=== PATIENT | male | born 1990 | race African-American/Black ===

== ENCOUNTER 2017-10-03 11:21 | Emergency (ER) | payer SELFPAY ==
[2017-10-03 11:43] VITALS: BP 120/66
[2017-10-03] MEDS ORDERED: IBUPROFEN 800 MG TABLET PO ONE (12:26)
[2017-10-03] MEDS ORDERED: PENICILLIN V POTASSIUM 500 MG TABLET PO ONE (12:26)
--- NOTE | 2017-10-03 12:30 | ER Document Report ---
HPI - HPI Patient complains to provider of: Sore throat Onset/Duration: Persistent Quality of pain: Achy Pain Level: 4 Context: Patient presents complaining of sore throat for the past 2 days. Patient does report fever at home. Patient denies any cough or cold symptoms otherwise. Associated Symptoms: Fever, Sore throat. denies: Nonproductive cough, Productive cough, Earache, Vomiting Exacerbated by: Denies Relieved by: Denies Similar symptoms previously: Yes Recently seen / treated by doctor: No - ROS ROS below otherwise negative: Yes Systems Reviewed and Negative: Yes All other systems reviewed and negative - CONSTITUTIONAL Constitutional: REPORTS: Fever - possible - EENT EENT: REPORTS: Sore Throat - since wednesday - RESPIRATORY Respiratory: DENIES: Trouble Breathing, Coughing - GASTROINTESTINAL Gastrointestinal: DENIES: Nausea, Patient vomiting - DERM Skin Color: Normal Skin Problems: None Past Medical History - General Information source: Patient - Social History Smoking Status: Current Every Day Smoker Chew tobacco use (# tins/day): No Frequency of alcohol use: Rare 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 IN LAST 30 DAYS: No - HEENT HEENT: Atraumatic, Normocephalic, Pharyngeal Tenderness, Pharyngeal Erythema. negative: Pharyngeal Exudate - NECK Neck: Lymphadenopathy-Left, Lymphadenopathy-Right - RESPIRATORY Respiratory: Breath Sounds Normal, No Respiratory Distress O2 Sat by Pulse Oximetry: 99 - CARDIOVASCULAR Cardiovascular: Regular Rate, Regular Rhythm, No Murmur - MUSCULOSKELETAL/EXTREMETIES Musculoskeletal/Extremeties: MAEW - NEURO Level of Consciousness: Awake, Alert, Appropriate Motor/Sensory: No Motor Deficit - DERM Integumentary: Warm, Dry, No Rash Course - Re-evaluation Re-evalutation: 10/03/17 12:29 Pt presents with symptoms concerning for tonsillitis. Will treat empirically and perform throat culture. No concern for peritonsillar abscess at this time. - Vital Signs Vital signs: Temp Pulse Resp BP Pulse Ox 98.5 F 79 120/66 99 10/03/17 11:42 10/03/17 11:42 10/03/17 11:42 10/03/17 11:42 Discharge - Discharge Clinical Impression: Tonsillitis Condition: Stable Disposition: HOME, SELF-CARE Instructions: Penicillin V K ([facility]), Sore Throat ([facility]), Tonsillitis ([facility]) Additional Instructions: Return immediately for any new or worsening symptoms Followup with your primary care provider, call tomorrow to make a followup appointment Increase oral fluids Throat culture is pending, we will call if you need any different treatment Prescriptions: Naproxen [Naprosyn 250 Nmg Tablet] 1 tab PO BID #14 tablet Penicillin V Potassium [Penicillin Vk 500 mg Tablet] 500 mg PO BID #20 tablet Forms: Return to Work Referrals: [facility] [Provider Group] - Follow up as needed
== END 2017-10-03 12:45 | disposition home or self-care (01) ==
LOC: ER 11:21
DX: J03.90 Acute tonsillitis, unspecified (principal); F17.200 Nicotine dependence, unspecified, uncomplicated
CPT/HCPCS: 87070; 87077; 99282